=== PATIENT | female | born 1955 | race Caucasian/White ===

== ENCOUNTER → 2024-01-04 10:13 | Outpatient (REF) | payer MEDICARE, OTHER, SELFPAY | LOC: HWRAD 10:13 | PROVIDERS: ATTENDING PHYSICIAN Family Medicine | DX: Z78.0 Asymptomatic menopausal state (principal) | CPT/HCPCS: 77080 ==

== ENCOUNTER → 2024-01-08 11:13 | Outpatient (REF) | payer MEDICARE, OTHER, SELFPAY | LOC: REG 11:13 | PROVIDERS: ATTENDING PHYSICIAN Nurse Practitioner Adult Health; FAMILY PHYSICIAN Family Medicine | DX: M25.561 Pain in right knee (principal) | CPT/HCPCS: 73564 ==

== ENCOUNTER 2024-09-11 22:15 | Emergency (ER) | payer MEDICARE, OTHER, SELFPAY ==
[2024-09-11 22:20] VITALS: BP 120/96
--- NOTE | 2024-09-12 01:12 | ED.GENMED ---
History of Present Illness
General
Chief Complaint: Musculo-Skeletal Complaint
Source: patient
Exam Limitations: none
Time Seen by Provider: 09/12/24 00:49
Nursing documentation reviewed up to this point in time: agreed with
History of Present Illness
History of Present Illness:
69-year-old female past medical history of SAH, hyperlipidemia presenting to the emergency department today with concerns of left-sided knee pain after a fall this afternoon. He struck her left knee initially was able to stand up and walk but has
had worsening swelling discomfort to the left knee since. Does not feel unstable. Denies additional significant injuries. Did not hit her head. Not on blood thinners.
Past History
Past History
ED Past Medical History: None
ED Past Surgical History: None
Social History
Tobacco: Non-smoker
Review of Systems
Review of Systems
Allergies reviewed?: Yes
All Other Systems: ROS reviewed and negative except as documented in HPI and ROS
Phy Exam
Physical Exam
Physical Exam:
GENERAL: Alert , in no apparent distress
EYE: pupils equal and reactive
NECK: Supple, no significant adenopathy.
ENT: o/p clr, mmm.
CARDIAC: Regular rate and rhythm .
LUNGS: Clear breath sounds bilaterally, no acute respiratory distress, no wheezes/rales/rhonchi
ABDOMEN: Soft, without focal tenderness, no r/g, no cvat
NEUROLOGICAL: Alert and oriented, no focal neuro deficits
SKIN: Warm and dry, skin intact.
MUSCULOSKELETAL: Left knee pain swelling superficial abrasion anteriorly good range of motion of the knee ankle hip. Able to straight leg raise. No edema, well perfused.
PSYCH: Normal and appropriate interaction.
Course
Orders/Labs/Results
Orders:
Orders
09/11/24 22:18
Knee, Left 4 or More Views [CR Knee - Left 4 Or More View*] Urgent
Comment:
Reason For Exam: pain
09/12/24 01:18
Tetanus/Diphth/Acelpertussis [Adacel] 0.5 ml IM .ONCE ONE
Vital Signs
Initial and Last Documented VS:
Initial Vital Signs
Temp Pulse Resp BP Pulse Ox
98.5 F 55 18 120/96 100
09/11/24 22:20 09/11/24 22:20 09/11/24 22:20 09/11/24 22:20 09/11/24 22:20
Last Documented Vital Signs
Temp Pulse Resp BP Pulse Ox
98.5 F 55 18 120/96 100
09/11/24 22:20 09/11/24 22:20 09/11/24 22:20 09/11/24 22:20 09/11/24 22:20
MDM/Problems Addressed
MDM/Problems Addressed:
69-year-old female presenting to the emergency department today with concerns of left knee pain after a fall a few hours prior to arrival to the emergency department. Able to ambulate but having some difficulty doing so. X-ray without evidence of
fracture but does show likely internal knee derangement. Patient was placed in a knee immobilizer and otherwise will follow-up with orthopedics. Additionally given a tetanus shot due to the abrasion sustained.
*Critical Care Note
Total Time (30-74mins, 75-104mins- exclusive of procedures): Not Applicable
ED Attending Note
-
Portions of this chart may have been created with voice recognition software.� Occasional wrong word or��sound alike� substitutions may have occurred due to the inherent limitations of voice recognition software.
Discharge Plan
Departure
Patient Disposition: Home (Routine Discharge)
Date of Disposition: 09/12/24
Time of Disposition: :25
Patient with high blood pressure during this ER visit?: No
Condition: Good
Covid-19: Not Applicable
Discharge Problem:
Injury of knee, left, Abrasion
Instructions: Muscle and Bone Pain (DC)
Referrals:
Twin Gómez MD [Active] - Follow up in 5-7 days
Activity Restrictions/Additional Instructions:
You came to the emergency department today with concerns of left knee pain. You may have an internal knee injury. Please rest ice compress and elevate and follow-up closely with orthopedics. Return for any worsening, new or concerning symptoms.
Interventions
Interventions:
*Risk Screen - Suicide Last Done: 09/11/24 22:20
*General Assessment Last Done: 09/11/24 22:20
*Neglect/Abuse Screening Last Done: 09/12/24 00:52
*ED- Fall Risk Assessment Last Done: 09/11/24 22:20
*ED COVID-19 Vaccine History Last Done: 09/11/24 22:20
ED-Musculoskeletal Assessment Last Done: 09/12/24 00:55
Discharge Date and Time
Print Language: CAMBODIAN
[2024-09-12 01:35] VITALS: BP 96/54
== END 2024-09-12 01:44 | disposition home or self-care (01) ==
LOC: EMR 22:15
PROVIDERS: EMERGENCY PHYSICIAN Emergency Medicine; FAMILY PHYSICIAN Family Medicine
DX: S80.212A Abrasion, left knee, initial encounter (principal); W19.XXXA Unspecified fall, initial encounter; E78.5 Hyperlipidemia, unspecified; Z86.79 Personal history of other diseases of the circulatory system
CPT/HCPCS: 29505; 99283; 73564

== ENCOUNTER → 2024-11-07 10:27 | Outpatient (REF) | payer MEDICARE, OTHER, SELFPAY | LOC: HWRAD 10:27 | PROVIDERS: ATTENDING PHYSICIAN Family Medicine | DX: R42 Dizziness and giddiness (principal); Z86.79 Personal history of other diseases of the circulatory system | CPT/HCPCS: 70450 ==

== ENCOUNTER → 2024-12-09 14:39 | Outpatient (REF) | payer MEDICARE, OTHER, SELFPAY | LOC: DHSLP 14:39 | PROVIDERS: ATTENDING PHYSICIAN Internal Medicine Critical Care Medicine; FAMILY PHYSICIAN Family Medicine | DX: G47.33 Obstructive sleep apnea (adult) (pediatric) (principal) | CPT/HCPCS: 95800 ==